=== PATIENT | female | born 2000 | race African-American/Black ===

== ENCOUNTER → 2023-10-19 14:53 | Outpatient (CLI) | payer OTHER, SELFPAY ==
[2023-10-19 15:21] LABS: Add Manual Diff / Slide Review NO; Basophils Absolute Auto 0 /uL (0-100); Basophils Percent Auto 0.4 % (0-2); Eosinophils Absolute Auto 100 /uL (0-450); Eosinophils Percent Auto 0.5 % (2-4); Hematocrit 33.3 % (36-46); Hemoglobin 11.4 g/dL (12.0-16.0); Lymphocytes Absolute Auto 1500 /uL (1100-4500); Lymphocytes Percent Auto 14.6 % (25-40); Mean Corpuscular HGB Conc 34.4 % (30-36); Mean Corpuscular Hemoglobin 30.9 PG (26-34); Mean Corpuscular Volume 89.9 fL (80-100); Monocytes Absolute Auto 500 /uL (0-900); Neutrophils Absolute Auto 8400 /uL (1500-7000); Neutrophils Percent Auto 79.5 % (50-75); Platelet Count 265 X10^3/uL (150-400); Red Cell Distribution Width 13.5 % (11.6-14.8); White Blood Cell Count 10.5 X10^3/uL (4.5-11.0)
[2023-10-19 17:37] LABS: Appearance Urine UA CLEAR; Bilirubin Urine UA NEGATIVE (NEGATIVE); Color Urine UA YELLOW; Glucose Urine UA NEGATIVE (Negative); Ketones Urine UA TRACE (NEGATIVE); Leukocyte Esterase Urine UA TRACE (NEGATIVE); Nitrite Urine UA NEGATIVE (Negative); Occult Blood Urine UA NEGATIVE (Negative); Protein Urine UA TRACE (Negative); Specific Gravity Urine UA >=1.030 (1.000-1.035)
[2023-10-19 17:39] LABS: Bacteria Urine Few (2-10); Mucus Urine 1+ (Negative); RBC Urine None Seen (0-5/HPF); Squamous Epithelial Cell Urine 5-10 /HPF (0-5/HPF); Urine Volume 10mL (spun); WBC Urine 5-10/HPF (0-5/HPF)
[2023-10-21 05:36] LABS: RPR Screen Non Reactive (Non Reactive)
[2023-10-21 08:36] LABS: Varicella IgG Antibody 415 index (Immune >165)
[2023-10-21 14:44] LABS: Hepatitis B Surface Antigen NEGATIVE s/c (NEGATIVE); Rubella Antibody IgG 7.2 IU/mL (>15)
[2023-10-21 15:01] LABS: HIV 1 & 2 Ab/Ag 4th Gen Combo NEGATIVE (NEGATIVE); Hep C Virus Ab w/Reflex Quant NEGATIVE s/c (NEGATIVE)
== END ==
PROVIDERS: Referring Provider Student in an Organized Health Care Education/Training Program; Visit Provider Student in an Organized Health Care Education/Training Program
DX: Z34.80 Encounter for supervision of other normal pregnancy, unspecified trimester (principal)
CPT/HCPCS: 80055; 81003; 81015; 86787; 86803; 86850; 86900; 86901; 87077; 87086; 87389

== ENCOUNTER 2023-10-31 15:57 | Emergency (ER) | payer OTHER, SELFPAY ==
[2023-10-31 16:20] VITALS: BP 120/64; PULSE 85; RESP 16; TEMP 37.1; O2SAT 100; BMI 26.1
[2023-10-31 18:32] VITALS: PULSE 76; RESP 16; O2SAT 100
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
[2023-10-31] MEDS: TET,DIPH,PERTUSS(ACELL),VAC/PF 0.5 ML SYRINGE IM (19:24)
[2023-10-31 19:28] VITALS: BP 112/67; PULSE 70; RESP 20; TEMP 36.9; O2SAT 100
== END 2023-10-31 19:33 | disposition home or self-care (01) ==
PROVIDERS: Emergency Provider Emergency Medicine
DX: S81.811A Laceration without foreign body, right lower leg, initial encounter (principal); W45.8XXA Other foreign body or object entering through skin, initial encounter; Z23 Encounter for immunization
CPT/HCPCS: 81003; 81025; 90471; 99283; 90715

== ENCOUNTER → 2023-11-01 07:14 | Outpatient (CLI) | payer OTHER, SELFPAY ==
--- NOTE | 2023-11-01 07:16 | DI.US.S_ITS ---
PROCEDURE: US OB >= 14 WEEKS FETUS INDICATIONS: f/u incomplete anatomy scan @[facility] OUTSIDE/PRIOR DATING DATA: Last menstrual period (LMP): 05/09/2023. LMP-based estimated date of delivery (DOMINIQUE): 02/12/2024. The calculations are made using the DOMINIQUE of 02/18/2024. TECHNIQUE: Real-time scanning was performed of the fetus, with image documentation and biometric measurements. Endovaginal scanning: Not performed COMPARISON: None. FINDINGS: General: A single living intrauterine gestation is present. Presentation: Breech. Placenta: Placental position is anterior , without previa. Amniotic fluid index: 25.9 cm, normal range is 5-24 cm. Single deepest vertical pocket is 7.9 cm. heart rate: 140 beats per minute. Maternal cervical canal: 3.1 cm long. Normal lower limit is 2.5 cm. biometrics: Biparietal diameter: 6.2 cm, 25 weeks 2 days Head circumference: 22.7 cm, 24 weeks 5 days Abdominal circumference: 19.4 cm, 24 weeks 0 days Femur length: 4.1 cm, 23 weeks 3 days Clinically estimated gestational age: 23 weeks 5 days Composite gestational age from present scan: 24 weeks 3 days Estimated weight and percentile: 645 g, 53% Anatomic survey: Face: Nose and lips, facial profile are normal. Heart: 4-chambered heart is present. The outflow tracts are not well seen secondary to positioning. IMPRESSION: 1. Single live intrauterine consistent with 24 weeks and 3 days. 2. Facial profile, nose and lips are within normal limits. Four-chamber heart is seen. The outflow tracts are not well seen secondary to positioning. 3. Elevated amniotic fluid index at 25.9 cm. Recommend short-term follow-up ultrasound. 4. Placental cord insertion was not imaged, attention on follow-up exam. We strive to produce accurate, complete, and clear reports of imaging services. To assist us in improving patient care, this report was composed using standard report templates and voice recognition software. Therefore, it may contain abnormal punctuation, insertions and/or omissions. Occasional wrong-word or sound-alike substitutions may occur. Though we review the report and make efforts to correct it, we do recommend that the report be read carefully in proper context to recognize any text inaccuracies. Dictated by: Sarkis Cantu M.D. on 11/01/2023 at 10:57 Approved by: Sarkis Cantu M.D. on 11/01/2023 at 11:02
== END ==
PROVIDERS: Referring Provider Student in an Organized Health Care Education/Training Program; Visit Provider Student in an Organized Health Care Education/Training Program
DX: Z34.82 Encounter for supervision of other normal pregnancy, second trimester (principal); Z3A.24 24 weeks gestation of pregnancy
CPT/HCPCS: 76811

== ENCOUNTER → 2023-11-16 07:47 | Outpatient (CLI) | payer OTHER, SELFPAY ==
--- NOTE | 2023-11-16 07:48 | DI.US.S_ITS ---
PROCEDURE: US OB FOLLOW UP INDICATIONS: short term followup OUTSIDE/PRIOR DATING DATA: Last menstrual period (LMP): 05/09/2023. LMP-based estimated date of delivery (DOMINIQUE): 02/12/2024. The calculations are made using the working DOMINIQUE of 02/18/2024. TECHNIQUE: Real-time scanning was performed of the fetus, with image documentation and biometric measurements. Endovaginal scanning: No COMPARISON: None. FINDINGS: General: A single living intrauterine gestation is present. Presentation: Breech. Placenta: Placental position is anterior , without previa. Amniotic fluid index: 30.3 cm, normal range is 5-24 cm. Single deepest vertical pocket is 8.7 cm. heart rate: 143 beats per minute. Maternal cervical canal: 4.3 cm long. Normal lower limit is 2.5 cm. Clinically estimated gestational age: 26 week 4 day Anatomic survey: Neuro: Ventricles are normal at less than 10 mm. Cisterna magna is normal at 3-11 mm. Cerebellum is normal in size and morphology. Nuchal skin fold: Normal at less than 6 mm between 14 and 21 weeks gestational age. Face: Nose and lips, facial profile are normal. Spine: No evidence for spina bifida. Heart: 4-chambered heart is present, with normal ventricular outflow tracts. Diaphragm: Diaphragm is intact. Stomach: Left-sided stomach is present. Kidneys: No hydronephrosis. Normal is less than 5 mm in 2nd trimester, less than 7 mm in 3rd trimester. Cord: 3 vessel cord has orthotopic insertion. Bladder: Normal in size. Extremities: All 4 extremities are visualized. IMPRESSION: Single live intrauterine consistent with a 26 week 4 day gestation. Polyhydramnios. AYESHA 30.3 Approved by: Teodoro Cruz M.D. on 11/16/2023 at 18:14
[2023-11-16 13:03] LABS: Hematocrit 31.4 % (36-46); Hemoglobin 10.8 g/dL (12.0-16.0)
[2023-11-16 13:40] LABS: GTT (PREG) 1 Hour PP 50gm Dose 116 mg/dL (76-139)
== END ==
PROVIDERS: Referring Provider Student in an Organized Health Care Education/Training Program; Visit Provider Student in an Organized Health Care Education/Training Program
DX: O40.2XX0 Polyhydramnios, second trimester, not applicable or unspecified (principal); Z3A.26 26 weeks gestation of pregnancy
CPT/HCPCS: 36415; 76816; 82950; 85014; 85018

== ENCOUNTER 2023-11-25 08:51 | Outpatient (CLI) | payer OTHER, SELFPAY ==
[2023-11-25 09:19] LABS: Appearance Urine UA CLEAR; Bilirubin Urine UA NEGATIVE (NEGATIVE); Color Urine UA YELLOW; Glucose Urine UA NEGATIVE (Negative); Ketones Urine UA NEGATIVE (NEGATIVE); Leukocyte Esterase Urine UA 1+ (NEGATIVE); Nitrite Urine UA NEGATIVE (Negative); Occult Blood Urine UA NEGATIVE (Negative); Protein Urine UA NEGATIVE (Negative)
[2023-11-25 09:26] LABS: Bacteria Urine None Seen; Culture Indicated Urine Cult Not Indicated; RBC Urine 0-1/HPF (0-5/HPF); Squamous Epithelial Cell Urine 5-10 /HPF (0-5/HPF); Urine Volume 10mL (spun); WBC Urine 1-5/HPF (0-5/HPF)
--- NOTE | 2023-11-25 10:02 | DI.US.S_ITS ---
PROCEDURE: US OB LIMITED INDICATIONS: PAIN OUTSIDE/PRIOR DATING DATA: Last menstrual period (LMP): 05/09/2023. LMP-based estimated date of delivery (DOMINIQUE): 02/12/2024. First dating scan (date and location): Not applicable. Estimated date of delivery (DOMINIQUE) from first dating scan: Not applicable. TECHNIQUE: Real-time scanning was performed of the fetus, with image documentation. COMPARISON: [facility], OB >= 14 WEEKS FETUS, 11/01/2023, 7:37. [facility], OB FOLLOW UP, 11/16/2023, 8:03. FINDINGS: A single live intrauterine gestation is present. Presentation: Vertex. Placenta: Placental position is anterior, without previa. In this patient with this given history, scrutiny is given to the placenta. No placental abnormality is seen. Amniotic fluid index: 23.3 cm, normal range is 5-24 cm. Single deepest vertical pocket is 7.4 cm. heart rate: 132 beats per minute. Maternal cervical canal: 3.2 cm long. Normal lower limit is 2.5 cm. Clinically estimated gestational age: 27 weeks 6 days IMPRESSION: No placental abnormality is seen on these images. Dictated by: Juan Motta M.D. on 11/25/2023 at 10:22 Approved by: Juan Motta M.D. on 11/25/2023 at 10:27
--- NOTE | 2023-11-25 10:41 | P.TNLD_ITS ---
Visit Information Visit Information Date of evaluation: 11/25/23 Primary OB Provider: Liz Seymour Reason for Evaluation: Yes pre-term labor and Yes rule out labor Comments/Additional reasons for admission: Patient evaluated for severe abdominal pain wrapped around to back. Pain began 24 hours ago. Constant. No leaking of fluid. Increased discharge. Good movement. 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 ) current occupational exposures/hazards: No special korey needs: No travel history: recent (domestic only) seatbelt use: always water heater temp set < 120 deg: Yes working smoke detector in home: Yes fire extinguisher in home: Yes carbon monox detector in home: Yes firearms in home: No do you feel safe at home: Yes Smoking Status: Former smoker Tobacco: How many years used: 2 second hand exposure: No alcohol intake: former (occasionally when not ) substance use type: does not use during the past year weight has: remained stable (prior ) well-balanced diet: about half the time daily servings fruits/ve-4 (~3 almost exclusively fruit) caffeine: Yes (stopped energy drinks with ) Type(s) of exercise: walking additional social history: Patient still legally to someone else but states that she has a protection order in place against him. Has already had HCPOA drawn up and names mother as her POA. Exam Narrative Exam Narrative: Speculum exam without pooling of fluids. Cervix closed. Copious yellow discharge. Objective Labs Labs: Laboratory Results - last 24 hr 11/25/23 09:00 Urine Color Yellow Urine Appearance Clear Urine pH 7.0 Ur Specific [place] 1.020 Urine Protein Negative Urine Glucose (UA) Negative Urine Ketones Negative Urine Occult Blood Negative Urine Nitrate Negative Urine Bilirubin Negative Urine Urobilinogen 1.0 Ur Leukocyte Esterase 1+ H Urine RBC 0-1/hpf Urine WBC 1-5/hpf Ur Squamous Epith Cells 5-10 /hpf H Urine Bacteria None seen Ur Culture Indicated? Cult not indicated Vol Urine Centrifuged 10ml (spun) Evaluation Evaluation Baseline heart rate: 145 Variability: Average (6-10) monitor accelerations: Present Monitor Decelerations: Absent Diagnosis, Plan/Disposition Final Diagnosis (1) Bacterial vaginosis: Status: Acute Plan/Disposition Plan: Urine negative. Ultrasound without signs of abruption. Exam consistent with BV. Prescription for metronidazole sent. FU next week in clinic. OB Disposition: home
== END 2023-11-25 10:39 | disposition home or self-care (01) ==
LOC: LABOR 09:01 → OB 11-30 12:21
PROVIDERS: Referring Provider Student in an Organized Health Care Education/Training Program; Visit Provider Student in an Organized Health Care Education/Training Program
DX: O23.592 Infection of other part of genital tract in pregnancy, second trimester (principal); Z3A.27 27 weeks gestation of pregnancy
CPT/HCPCS: 59025; 76815; 81001; 84112; 87086; 87210; G0378; G0379

== ENCOUNTER 2024-01-22 11:52 | Observation (INO) | payer OTHER, SELFPAY ==
[2024-01-22 12:29] LABS: Appearance Urine UA CLEAR; Bilirubin Urine UA NEGATIVE (NEGATIVE); Color Urine UA YELLOW; Glucose Urine UA TRACE g/dL (Negative); Ketones Urine UA NEGATIVE (NEGATIVE); Leukocyte Esterase Urine UA TRACE (NEGATIVE); Nitrite Urine UA NEGATIVE (Negative); Occult Blood Urine UA NEGATIVE (Negative); Protein Urine UA NEGATIVE (Negative); Urobilinogen Urine UA 0.2 E.U./dL (0.2)
[2024-01-22 12:38] LABS: Amorphous Sediment Urine 1+; Bacteria Urine Few (2-10); Culture Indicated Urine Specimen Cultured; RBC Urine None Seen (0-5/HPF); Squamous Epithelial Cell Urine 1-5 /HPF (0-5/HPF); Urine Volume 10mL (spun); WBC Urine 1-5/HPF (0-5/HPF)
[2024-01-22 13:08] LABS: Strep Grp B PCR POS for Grp B Strep
[2024-01-22] MEDS: LACTATED RINGERS 1,000 ML 1000 ML IV (13:20)
== END 2024-01-22 14:34 | disposition home or self-care (01) ==
PROVIDERS: Admitting Provider Student in an Organized Health Care Education/Training Program; Referring Provider Student in an Organized Health Care Education/Training Program; Visit Provider Student in an Organized Health Care Education/Training Program
DX: O60.03 Preterm labor without delivery, third trimester (principal); O40.3XX0 Polyhydramnios, third trimester, not applicable or unspecified; Z3A.35 35 weeks gestation of pregnancy
CPT/HCPCS: 59025; 59050; 81001; 87086; 87653; 96360; G0378; G0379

== ENCOUNTER → 2024-02-01 10:47 | Outpatient (CLI) | payer OTHER, SELFPAY ==
--- NOTE | 2024-02-01 10:48 | DI.US.S_ITS ---
PROCEDURE: US OB LIMITED INDICATIONS: 4 week follow up OUTSIDE/PRIOR DATING DATA: Last menstrual period (LMP): 05/09/2023. LMP-based estimated date of delivery (DOMINIQUE): 02/12/2024. First dating scan (date and location): 08/01/2023. Estimated date of delivery (DOMINIQUE) from first dating scan: 02/23/2024. The calculations are made using the working DOMINIQUE of 02/23/2024. TECHNIQUE: Real-time scanning was performed of the fetus, with image documentation and biometric measurements. Endovaginal scanning: No COMPARISON: [facility], OB LIMITED, 11/25/2023, 10:16. FINDINGS: General: A single living intrauterine gestation is present. Presentation: Vertex. Placenta: Placental position is anterior , without previa. Amniotic fluid index: 23.5 cm, normal range is 5-24 cm. Single deepest vertical pocket is 8.6 cm. heart rate: 155 beats per minute. Maternal cervical canal: Nonvisualized biometrics: Biparietal diameter: 9.0 cm, 36 week 4 day Head circumference: 32.7 cm, 37 week 1 day Abdominal circumference: 31.8 cm, 35 week 5 day Femur length: 6.5 cm, 33 week 3 day Clinically estimated gestational age: 36 week 6 day Composite gestational age from present scan: 35 week 5 day Estimated weight and percentile: 2647 g, 18 percentile Other: Not applicable. IMPRESSION: Single live intrauterine consistent with 35 week 5 day gestation by current ultrasound Normal anatomic survey Approved by: Teodoro Cruz M.D. on 02/01/2024 at 17:27
== END ==
LOC: US 10:48
PROVIDERS: Referring Provider Student in an Organized Health Care Education/Training Program; Visit Provider Student in an Organized Health Care Education/Training Program
DX: O40.3XX0 Polyhydramnios, third trimester, not applicable or unspecified (principal); Z3A.35 35 weeks gestation of pregnancy
CPT/HCPCS: 76815

== ENCOUNTER 2024-02-03 15:19 | Outpatient (CLI) | payer OTHER, SELFPAY | END 2024-02-03 16:09 | disposition home or self-care (01) | LOC: LABOR 16:19 → OB 02-07 06:26 | PROVIDERS: Referring Provider Family Medicine; Visit Provider Family Medicine | DX: O47.1 False labor at or after 37 completed weeks of gestation (principal); O26.893 Other specified pregnancy related conditions, third trimester; N89.8 Other specified noninflammatory disorders of vagina; O40.3XX0 Polyhydramnios, third trimester, not applicable or unspecified; Z3A.37 37 weeks gestation of pregnancy | CPT/HCPCS: 59025; 84112; 87210; G0378; G0379 ==

== ENCOUNTER 2024-02-10 14:43 | Outpatient (CLI) | payer OTHER, SELFPAY | END 2024-02-10 16:22 | disposition home or self-care (01) | LOC: LABOR 15:01 → OB 02-14 10:34 | PROVIDERS: Referring Provider Student in an Organized Health Care Education/Training Program; Visit Provider Student in an Organized Health Care Education/Training Program | DX: O40.3XX0 Polyhydramnios, third trimester, not applicable or unspecified (principal); O09.33 Supervision of pregnancy with insufficient antenatal care, third trimester; Z3A.38 38 weeks gestation of pregnancy | CPT/HCPCS: 59025; 84112; 87210; G0378; G0379 ==

== ENCOUNTER 2024-02-13 09:30 | Observation (INO) | payer OTHER, SELFPAY | END 2024-02-13 12:30 | disposition home or self-care (01) | LOC: LABOR 09:32 | PROVIDERS: Admitting Provider Family Medicine; Referring Provider Family Medicine; Visit Provider Family Medicine | DX: O47.1 False labor at or after 37 completed weeks of gestation (principal); O40.3XX0 Polyhydramnios, third trimester, not applicable or unspecified; O09.33 Supervision of pregnancy with insufficient antenatal care, third trimester; Z3A.38 38 weeks gestation of pregnancy | CPT/HCPCS: 59025; 59050; G0378; G0379 ==

== ENCOUNTER 2024-02-16 17:11 | Inpatient (IN) | payer OTHER, SELFPAY ==
[2024-02-16 18:11] LABS: Add Manual Diff / Slide Review NO; Basophils Absolute Auto 100 /uL (0-100); Basophils Percent Auto 1.1 % (0-2); Eosinophils Absolute Auto 0 /uL (0-450); Eosinophils Percent Auto 0.2 % (2-4); Hemoglobin 11.4 g/dL (12.0-16.0); Lymphocytes Absolute Auto 1500 /uL (1100-4500); Lymphocytes Percent Auto 14.6 % (25-40); Mean Corpuscular HGB Conc 33.6 % (30-36); Mean Corpuscular Hemoglobin 29.7 PG (26-34); Mean Corpuscular Volume 88.5 fL (80-100); Monocytes Absolute Auto 800 /uL (0-900); Monocytes Percent Auto 7.4 % (3-14); Neutrophils Absolute Auto 8100 /uL (1500-7000); Neutrophils Percent Auto 76.7 % (50-75); Platelet Count 268 X10^3/uL (150-400); Red Blood Cell Count 3.84 X10^6/uL (4.0-5.2); Red Cell Distribution Width 13.8 % (11.6-14.8); White Blood Cell Count 10.6 X10^3/uL (4.5-11.0)
[2024-02-16 18:31] VITALS: BP 118/73
[2024-02-16] MEDS: miSOPROStoL 25 MCG TABLET VAG (18:50)
--- NOTE | 2024-02-16 20:30 | P.HPOB_ITS ---
OB HPI Date/Time Date of admission: 02/16/24 History of Present Condition Chief complaint: INDUCTION DOMINIQUE Calculator 2 Estimated Delivery Date Method Current Current Estimate 02/23/24 Manual 39w 0d Reportedly based on 1st US per [facility] provider notes Other Estimates 02/10/24 LMP (Uncertain) 40w 6d : 2 Para: 0 Narrative: 23 yo at 39w0d here for elective induction. complicated by polyhydramnios and GBS bacteriuria. Patient saw MFM. They did not find indication for polyhydramnios, no GDM. Recommended q4w US. Most recent January 31 with fluid at 24.5, EFW 18th percentile. Patient with ongoing irregular contraction for past few weeks. Good movement. No LOF. care: good care Dating criteria OB: based on 1st trimester US only Ultrasounds: normal 1st trimester US and abnormal US findings Abnormal ultrasound findings: polyhydramnios Obstetrical complications: none Medical complications OB: none Indications Indication for induction OB: other (polyhydramnios) Preadmission Labs Last OB Lab Results: 2 Blood Type O Positive 02/16/24 17:55 Antibody Screen Negative 02/16/24 17:55 Hct 34.0 % (36-46) L 02/16/24 17:55 Hgb 11.4 g/dL (12.0-16.0) L 02/16/24 17:55 Hep Bs Antigen Negative s/c (NEGATIVE) 10/19/23 15:03 Hepatitis C Antibody Negative s/c (NEGATIVE) 10/19/23 15:03 Rubella Antibody 7.2 IU/mL (>15) L 10/19/23 15:03 VZV IgG Antibody 415 index (Immune >165) 10/19/23 15:03 Glucose 1 Hr 50 gm 116 mg/dL (76-139) 11/16/23 12:41 Group B Strep (PCR) Pos for grp b strep H 01/22/24 12:10 Glucose Tolerance Testin hr Prior (ies) Past Pregnancies Del. Date GA/Weeks Labor Lgth Wt Sex Route Outcome Anesthesia Place Delv Breastfeed Preg Comp Name 11/17/22 13 spontaneous Delivery Date: 11/17/22 Last Updated by: Fior Liz RN drinking and smoking, didn't know she was until she miscarried. Passed spontaneously, no complications Evaluation Evaluation Baseline heart rate: 145 Variability: Average (6-10) monitor accelerations: Present Monitor Decelerations: Absent Contraction Frequency (minutes): 5 Category of Tracing: Reactive Status: Category l Dilation (cm): 1.5 Effacement (%): 30 Dilation: 1-2 cm Effacement: 0-30% station: -3 Position of cervix: posterior Consistency: medium Sandoval score: 2 PFSH Medical History Healthy adult Surgical History [place] teeth extracted Social History marital status: unmarried,living together number of children: 0 household members: significant other lives independently: Yes caregiver/support person: No housing: [facility] ([facility] education level: high school 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, 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 ) current occupational exposures/hazards: No special korey needs: No travel history: recent (domestic only) seatbelt use: always water heater temp set < 120 deg: Yes working smoke detector in home: Yes fire extinguisher in home: Yes carbon monox detector in home: Yes firearms in home: No do you feel safe at home: Yes Smoking Status: Former smoker Tobacco: How many years used: 2 second hand exposure: No alcohol intake: former (occasionally when not ) substance use type: does not use during the past year weight has: remained stable (prior ) well-balanced diet: about half the time daily servings fruits/ve-4 (~3 almost exclusively fruit) caffeine: Yes (stopped energy drinks with ) Type(s) of exercise: walking additional social history: Patient still legally to someone else but states that she has a protection order in place against him. Has already had HCPOA drawn up and names mother as her POA. Meds Home Medications and Allergies Home Medications Medication Instructions Recorded Confirmed Type [id number] 400 mcg-om3 35 mg-dha 25 1 tab PO 1XD 10/18/23 02/16/24 History mg-epa 5 mg-fish oil chewable tablet 139-iron 33 mg-folic ac 1 pkg PO DAILY #60 ea 11/16/23 02/16/24 Rx 800 mcg tablet and dha 350 mg capsule (Brainstron ) metronidazole 500 mg tablet 500 mg PO TID #21 tabs 11/25/23 02/16/24 Rx fluconazole 150 mg tablet 150 mg PO Q3D 2 doses #2 tabs 02/10/24 02/16/24 Rx Allergies Allergy/AdvReac Type Severity Reaction Status Date / Time No Known Drug Allergies Allergy Verified 02/16/24 17:39 Objective Labs 02/16/24 17:55 Labs: Laboratory Results - last 24 hr 02/16/24 17:55 WBC 10.6 RBC 3.84 L Hgb 11.4 L Hct 34.0 L MCV 88.5 MCH 29.7 MCHC 33.6 RDW 13.8 Plt Count 268 Neut % (Auto) 76.7 H Lymph % (Auto) 14.6 L Kimble % (Auto) 7.4 Eos % (Auto) 0.2 L Baso % (Auto) 1.1 Neut # (Auto) 8100 H Lymph # (Auto) 1500 Kimble # (Auto) 800 Eos # (Auto) 0 Baso # (Auto) 100 Blood Type O Positive Antibody Screen Negative Assessment and Plan Assessment and Plan Assessment and Plan narrative: 23 yo at 39w0d based on 1st tri US here for IOL. complicated by polyhydramnios and GBS bacteriuria. SVE 1.5/thick/high. -vaginal misoprostal 25 mcg q4hrs -continuous monitoring -GBS pos, no allergies to antibiotics - start routine antibiotics when more active -anticipate vaginal delivery Time-Based Coding :: 30 min spent with patient and on the chart (including review of chart, obtaining history, exam, reviewing outside data, placing orders, documenting exam and treatment plan, and counseling patient) on 02/15.
[2024-02-17] MEDS: fentaNYL 100 MCG/2 ML INJ 50 MCG IV ×3 (00:54→12:26)
[2024-02-17] MEDS: miSOPROStoL 25 MCG TABLET VAG (07:35)
--- NOTE | 2024-02-17 07:43 | P.PNOB_ITS ---
Date/Time Date Patient Seen: 02/17/24 Time Patient Seen: 07:30 Pain Control Pain control: tolerating well Comments: fentanyl overnight Pelvic Exam Dilation (cm): 2 Effacement (%): 40 station: -3 Amniotic membrane status: Intact Contractions Monitor mode: External Contraction frequency (min): 5 Contraction pattern: Regular Contraction intensity: Moderate Status status: Category l Heart Rate Baseline: 120 Monitor Accelerations: Present Monitor Decelerations: Absent Monitor Variability: Moderate Assessment and Plan Assessment: induction ongoing Plan: continuous present management Comments: Patient received one dose of vag miso 25 mcg and reported contraction pain 7- 8/10 overnight. No cervical change this AM. Will redose vaginal misoprostol 25 mcg and then move to pitocin.
--- NOTE | 2024-02-17 13:23 | PM.OBPNLAB ---
Date/Time Date Patient Seen: 02/17/24 Time Patient Seen: 12:00 Pain Control Comments: fentanyl x 2 Pelvic Exam Dilation (cm): 2 Effacement (%): 40 station: -3 Amniotic membrane status: Intact Contractions Monitor mode: External Contraction frequency (min): 5 Contraction pattern: Regular Contraction intensity: Moderate Status status: Category l Heart Rate Baseline: 145 Monitor Accelerations: Present Monitor Decelerations: Absent Monitor Variability: Moderate Assessment and Plan Assessment: induction ongoing Plan: begin patient augmentation Comments: 23 yo at 39w0d IOL. complicated by polyhydramnios. SVE unchanged. -jarvis placed at this time -start pitocin
[2024-02-17] MEDS: LACTATED RINGERS 1,000 ML 100 ML IV ×2 (14:04→14:58)
[2024-02-17] MEDS: OXYTOCIN PREMIX 30 UNIT/500 ML PLAST..BAG IV (14:33)
--- NOTE | 2024-02-17 14:36 | PM.AN.REGBLK ---
Regional Block Pre-procedure Procedure: Continuous Lumbar Epidural for L&D Attending OB provider: Liz Seymour PMH/ROS narrative: , IOL. ROS/PMH negative PSH/Anesthesia history narrative: lumbar puncture for increased ICP a couple years ago. Patient related the increase to stress. Resolved, no sequelae. Exam narrative: Mall II, good dentition ASA Class: II Labs: Hct 34.0 % (36-46) L 02/16/24 17:55 Plt Count 268 X10^3/uL (150-400) 02/16/24 17:55 Medications: Current Medications Generic Name Dose Route Start Last Admin Trade Name Freq PRN Reason Stop Dose Admin Carboprost Tromethamine 250 mcg 02/16/24 17:19 Carboprost 250 Mcg/Ml Ampul IM Q90M PRN Bleeding Fentanyl 50 mcg 02/16/24 17:19 02/17/24 12:26 Fentanyl 100 Mcg/2 Ml Inj IV 50 mcg Q1H PRN Administration Pain, Moderate (4-6) Oxytocin/Lactated Ringer's 30 unit in 500 mls @ 200 mls/hr 02/16/24 17:19 Oxytocin Premix IV CONT PRN Bleeding Protocol Tranexamic Acid 1,000 mg/ 100 mls @ 600 mls/hr 02/16/24 17:19 Sodium Chloride IV NOW PRN Bleeding Oxytocin/Lactated Ringer's 30 unit in 500 mls @ 2 mls/hr 02/17/24 13:45 02/17/24 14:33 Oxytocin Premix IV 2 milliunit/min TITRATE NATALYA 2 mls/hr Administration Protocol 2 MILLIUNIT/MIN Lidocaine HCl 20 ml 02/16/24 17:19 Lidocaine 1% 20 Ml INJ INTRA-OP PRN Post Delivery Methylergonovine Maleate 0.2 mg 02/16/24 17:19 Methylergonovine 0.2 Mg/Ml Vial IM NOW PRN Bleeding Methylergonovine Maleate 0.2 mg 02/16/24 17:19 Methylergonovine 0.2 Mg Tablet PO Q6HR PRN Heavy Bleeding Mineral Oil 30 ml 02/16/24 17:19 Mineral Oil 30 Ml Udc TOP PRN PRN Version Misoprostol 400 mcg 02/16/24 17:19 Misoprostol 200 Mcg Tablet SL NOW PRN Bleeding Misoprostol 25 mcg 02/16/24 17:19 02/17/24 07:35 Misoprostol 25 Mcg Tablet VAG 25 mcg Q4H PRN Administration cervical ripening Misoprostol 800 mcg 02/16/24 17:19 Misoprostol [address] NOW PRN Bleeding Naloxone HCl 0.2 mg 02/16/24 17:19 Naloxone 0.4 Mg/Ml Vial IV Q2MIN PRN Opiate Reversal Ondansetron HCl 4 mg 02/16/24 17:19 Ondansetron 4 Mg/2 Ml Inj IV Q4HR PRN Nausea And Vomiting Oxytocin 10 unit 02/16/24 17:19 Oxytocin 10 Unit/Ml Vial IM NOW PRN Bleeding Allergies: Allergies Allergy/AdvReac Type Severity Reaction Status Date / Time No Known Drug Allergies Allergy Verified 02/16/24 17:39 Procedure Insertion date: 02/17/24 Insertion time: 14:10 Prep/Local: 1% lidocaine (chlorhex skin prep) Interspace: L4-5 Patient position: sitting Needle: 17 gauge Tuohy Loss of resistance with: saline ROGERS at (cm): 6 Catheter placed at SKIN (cm): 13 Catheter in SPACE (cm): 7 Sensory level: T10 Insertion: No CSF, No Blood, No Paresthesia with insertion, No Paresthesia with injection and No Test dose reaction Initial Medications TEST DOSE time: 14:20 BOLUS DOSE time: 14:28 BOLUS DOSE (mL): 5 BOLUS DOSE med: other (pump solution) Infusion Initial rate (mL/hr): 12 Post-procedure Anesthesia date START: 02/17/24 Anesthesia time START: 14:10 Anesthesia date END: 02/17/24 Anesthesia time END: 21:59 Post-procedure Anesthesia Assessment: Yes CV function: HR/BP stable, Yes Resp function: RR/sat/airway adequate, Yes Post-op hydration adequate, Yes Pain control adequate, Yes Nausea & vomiting absent, Yes Temperature > 36 C, Yes Mental status appropriate and Yes Anesthesia complications
[2024-02-17] MEDS: AMPICILLIN 2,000 MG in SODIUM CHLORIDE 0.9% 100 ML 200 MG IV (18:17)
--- NOTE | 2024-02-17 20:52 | PM.OBPNLAB ---
Pain Control Pain control: epidural Pelvic Exam Dilation (cm): 6 Effacement (%): 100 station: 0 Amniotic membrane status: Ruptured Contractions Monitor mode: External Contraction frequency (min): 3 Contraction pattern: Regular Contraction intensity: Moderate Status status: Category l Heart Rate Baseline: 145 Monitor Accelerations: Present Monitor Decelerations: Absent Monitor Variability: Moderate Assessment and Plan Assessment: induction ongoing Plan: continuous present management Comments: 23 yo at 39w0d IOL. complicated by polyhydramnios. GBS positive. SVE 6/100/0. -SROM at 1700, GBS prophylaxis started after -continue pitocin -anticipate vaginal delivery
[2024-02-17] MEDS: FENT 2MCG/ML BUPIV 0.125% EPI 200 MCG/100 ML PLAST..BAG 12 MCG EPIDURAL (21:17)
[2024-02-17] MEDS: TRANEXAMIC ACID 1,000 MG in SODIUM CHLORIDE 0.9% 100 ML 600 MG IV (22:13)
[2024-02-17] MEDS: miSOPROStoL 200 MCG TABLET 800 MCG PR (22:14)
--- NOTE | 2024-02-17 22:21 | PM.OBPRVD ---
Events: Polyhydramnios Labor & Delivery Delivery date: 02/17/24 Intrapartal Events: None Cervical ripening method: per Jackson bulb protocol (after 3 doses misoprostal) Induction method: per pitocin protocol Delivery monitor: external FHT Route of delivery: L&D Laceration Description: None Estimated blood loss (mL): 450 Anesthesia Type: Epidural Complications: uterine atony following delivery of placenta Narrative: 23 yo at 39w0d. IOL for polyhydramnios. Patient was found to be complete. Patient effectively pushed over 30 minutes. Viable male born in the OA position. Cord clamping for 5 minutes. Placenta delivered with manual traction. Following delivery of placenta there was rapid vaginal bleeding. Pitocin bolus was started. Rectal cytotec 1000 mcg given. TXA 1gm ordered and given. Cervix without any large bleeding lacerations. Bleeding slowed to trickle. Fundus firm with external massage. No vaginal lacerations. Plan for aftercare: Routine care
--- NOTE | 2024-02-18 07:46 | P.PNOB_ITS ---
Subjective - OB Subjective Patient comments: no complaints, pain well controlled and tolerating diet baby status: doing well and nursing well [employer] feeding status: exclusively breast feeding Narrative: Patient is doing well following last evening. Bleeding well controlled. Pain minimal. Baby latching well. Date Patient Seen: 02/18/24 Time Patient Seen: 07:30 Exam Narrative Exam Narrative: NAD, breathing easily. Objective Labs 02/16/24 17:55 Assessment & Plan Plan day: 1 plan OB: routine care Time-Based Coding :: 30 minutes spent with patient and on the chart (including review of chart, obtaining history, exam, reviewing outside data, placing orders, documenting exam and treatment plan, and counseling patient) on 02/18/2024.
[2024-02-18] MEDS: PRENATAL VIT,CALC/IRON/FOLIC 1 TABLET 1 TAB PO (07:51)
[2024-02-18] MEDS: ACETAMINOPHEN 325 MG TABLET 650 MG PO (07:51)
[2024-02-18] MEDS: IBUPROFEN 600 MG TABLET PO (07:51)
[2024-02-18] MEDS: LANOLIN OINT 7 GM 1 APPLIC TOP (07:52)
[2024-02-18] MEDS: DOCUSATE 100 MG CAPSULE PO (09:22)
--- NOTE | 2024-02-18 12:08 | PM.OBDS.1 ---
Discharge Providers Provider Date of admission: 02/16/24 17:11 Discharge Date: 02/18/24 Primary care physician: Irlanda MOSS Provider Consults: 02/16/24 17:19 Consult to Anesthesiology Urgent Comment: Consulting Provider: Anesthesiologist Reason for consultation: Epidural 02/18/24 22:19 Consult to Electronics Utility Worker Routine Comment: Discharge provider: Liz Seymour MD Summary Hospital Course Date Patient Seen: 02/18/24 Time Patient Seen: 12:00 Diagnoses: Term ; polyhydramnios Hospital Course: This is a 23 yo G2 now P1. She was induced for polyhydramnios at 39w0d and delivered at 39w1d. She was GBS positive. She did not receive adequate GBS prophylaxis 2/2 to rapid progression. She did receive 3.5 hrs of antibiotics. Delivery was complicated by bleeding that was controlled with pitocin, cytotec, and TXA (EBL = 450). she recovered well. Baby was with good latch. Peripartum Data Delivery Method: Natural Vaginal Laceration Description: None complications: none Status at Discharge Cognitive/behavioral status at discharge: oriented Functional status at discharge: independent ambulation Overall status at discharge: patient is back to baseline Time Spent with Patient Time attestation: Total time spent providing and/or coordinating discharge services: Time spent: Greater than 30 minutes Objective Labs 02/16/24 17:55 Discharge Plan Discharge Plan Patient Disposition: Home Discharge orders & Medications Prescriptions: New acetaminophen 325 mg Tablet 650 mg PO Q6HR PRN (Reason: Pain, Mild (1-3)) Qty: 30 0RF docusate sodium 100 mg Capsule 100 mg PO DAILY Qty: 30 0RF ibuprofen 600 mg Tablet 600 mg PO Q6HR PRN (Reason: Pain, Mild (1-3)) Qty: 30 0RF Continued Brainstrong 33 mg iron- 800 mcg-350 mg combo pack 1 pkg PO DAILY Qty: 60 6RF [id number] oil 400 mcg-35 mg -25 mg-5 mg tablet,chewable 1 tab PO 1XD Discontinued fluconazole 150 mg tablet 150 mg PO Q3D Qty: 2 0RF metronidazole 500 mg tablet 500 mg PO TID Qty: 21 0RF Follow up/Referrals: Provider,Irlanda MOSS [Primary Care Provider] - Liz Seymour MD [Physician] - 03/31/24 10:30 am (Please follow up for your 6 week appointment on March 31 at 10:30 am. Please arrive at 10:15 am. ) Visit Report/Discharge Packet Instructions: DI for Hemorrhage, DI for Depression Stand Alone Forms: Discharge: Care, Patient Portal/API, Stroke Signs & Symptoms Discharge Data Primary Care Provider: Irlanda Rivera
== END 2024-02-18 13:18 | disposition home or self-care (01) | DRG 806 ==
PROVIDERS: Admitting Provider Student in an Organized Health Care Education/Training Program; Referring Provider Student in an Organized Health Care Education/Training Program; Visit Provider Student in an Organized Health Care Education/Training Program
DX: O40.3XX0 Polyhydramnios, third trimester, not applicable or unspecified (principal); O72.1 Other immediate postpartum hemorrhage; Z37.0 Single live birth; O99.824 Streptococcus B carrier state complicating childbirth; Z3A.39 39 weeks gestation of pregnancy
CPT/HCPCS: 36415; 59050; 59200; 59410; 85025; 86850; 86900; 86901; G0379; J0290; J2590; J3010; S0191

== ENCOUNTER → 2024-03-31 11:00 | Outpatient (CLI) | payer OTHER, SELFPAY | PROVIDERS: Visit Provider Student in an Organized Health Care Education/Training Program | DX: R31.9 Hematuria, unspecified (principal) | CPT/HCPCS: 87086 ==

== ENCOUNTER 2024-06-29 21:20 | Emergency (ER) | payer OTHER, SELFPAY ==
[2024-06-29 21:27] VITALS: BP 138/91; PULSE 77; RESP 16; TEMP 36.9; O2SAT 97; BMI 23.5
[2024-06-29 21:51] LABS: Add Manual Diff / Slide Review NO; Basophils Absolute Auto 100 /uL (0-100); Eosinophils Absolute Auto 100 /uL (0-450); Eosinophils Percent Auto 1.5 % (2-4); Hematocrit 39.7 % (36-46); Hemoglobin 13.2 g/dL (12.0-16.0); Lymphocytes Absolute Auto 2300 /uL (1100-4500); Lymphocytes Percent Auto 37.5 % (25-40); Mean Corpuscular HGB Conc 33.3 % (30-36); Mean Corpuscular Hemoglobin 28.9 PG (26-34); Mean Corpuscular Volume 86.8 fL (80-100); Monocytes Absolute Auto 500 /uL (0-900); Monocytes Percent Auto 7.7 % (3-14); Neutrophils Absolute Auto 3300 /uL (1500-7000); Neutrophils Percent Auto 52.3 % (50-75); Platelet Count 250 X10^3/uL (150-400); Red Blood Cell Count 4.58 X10^6/uL (4.0-5.2); Red Cell Distribution Width 14.4 % (11.6-14.8); White Blood Cell Count 6.2 X10^3/uL (4.5-11.0)
[2024-06-29] MEDS: KETOROLAC 30 MG/ML VIAL 15 MG IV (21:53)
[2024-06-29] MEDS: ONDANSETRON 4 MG/2 ML INJ IV (21:53)
[2024-06-29 22:01] LABS: Alanine Aminotransferase 68 IU/L (<35); Albumin 4.4 g/dL (3.5-5.0); Albumin Globulin Ratio 1.6 (1.0-2.8); Alkaline Phosphatase 96 U/L (38-126); Aspartate Aminotransferase 61 IU/L (14-36); BUN Creatinine Ratio 17.6 (6-22); Bilirubin Total 0.2 mg/dL (0.2-1.3); Blood Urea Nitrogen 16 mg/dL (7-17); Calcium 9.5 mg/dL (8.4-10.2); Carbon Dioxide 24 mmol/L (22-32); Chloride 108 mmol/L (98-107); Estimated Glomerular Filt Rate > 60 mL/min (>60); Globulin 2.7 g/dL (1.7-4.1); Glucose 109 mg/dL (70-100); HEMOLYSIS < 15 (0-50); Lipase 92 U/L (23-300); Potassium 4.3 mmol/L (3.4-5.1); Sodium 140 mmol/L (137-145); Total Protein 7.1 g/dL (6.3-8.2)
[2024-06-29 23:35] VITALS: PULSE 68; O2SAT 97
[2024-06-29 23:36] VITALS: BP 130/83; PULSE 65; RESP 18; O2SAT 97
--- NOTE | 2024-06-29 23:55 | ED.ABDPAIN ---
HPI - Abdominal Pain General Chief Complaint: Abdominal Pain Stated Complaint: severe abd pain Time Seen by Provider: 06/29/24 23:54 Source: patient Mode of arrival: Ambulatory History of Present Illness HPI narrative: Patient is a 24-year-old female who is 4 months comes into the ED from home for evaluation of lower abdominal pain states it radiates to her back. She states that the symptoms have been ongoing persistent for the past 3 weeks. She states that initially she thought she was starting her period but she has only been spotting and given persistent symptoms decided come into the ED for further evaluation treatment. States that her was vaginal, no history of abdominal surgery. She states that the pain is waxing and waning nothing making it better or worse described as a pressure. She does endorse some nausea but no vomiting. She denies any recent trauma not on any blood thinners denies any other symptoms such as headache visual disturbances chest pain fever chills or any other GI/ symptoms at this time. Related Data Previous Rx's Medication Instructions Recorded 139-iron 33 mg-folic ac 1 pkg PO DAILY #60 ea 11/16/23 800 mcg tablet and dha 350 mg capsule (Brainstrong ) polyethylene glycol 3350 17 17 g PO DAILY 2 weeks #238 grams 06/30/24 gram/dose oral powder (Miralax) Allergies Allergy/AdvReac Type Severity Reaction Status Date / Time No Known Drug Allergies Allergy Verified 03/31/24 10:43 Review of Systems Review of Systems Narrative: General: Denies fever, chills, weight loss HEENT: Denies headache, eye drainage, eye irritation, head trauma, sore throat, voice change Cardiovascular: Denies any chest pain, palpitations, tachycardia Respiratory: Denies any shortness of breath, cough, wheeze, stridor GI/: Positive abdominal pain, nausea, denies vomiting, diarrhea, bright red blood per rectum, melanotic stools, urinary frequency, urinary retention, dysuria, hematuria MSK: Denies any joint pain, muscle pains, swelling Skin: Denies any rashes, lesions, discoloration Neuro: Denies any headache, lightheadedness, dizziness, fainting, weakness Psych: Denies SI/HI Patient History Medical History Healthy adult Surgical History [place] teeth extracted Social History marital status: unmarried,living together number of children: 0 household members: significant other lives independently: Yes caregiver/support person: No housing: [facility] education level: high school 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, 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 ) current occupational exposures/hazards: No special korey needs: No travel history: recent (domestic only) seatbelt use: always water heater temp set < 120 deg: Yes working smoke detector in home: Yes fire extinguisher in home: Yes carbon monox detector in home: Yes firearms in home: No do you feel safe at home: Yes Smoking Status: Former smoker Tobacco: How many years used: 2 second hand exposure: No alcohol intake: former (occasionally when not ) substance use type: does not use during the past year weight has: remained stable (prior ) well-balanced diet: about half the time daily servings fruits/ve-4 (~3 almost exclusively fruit) caffeine: Yes (stopped energy drinks with ) Type(s) of exercise: walking additional social history: Patient still legally to someone else but states that she has a protection order in place against him. Has already had HCPOA drawn up and names mother as her POA. Smoking Status: Former smoker Exam Narrative Exam Narrative: General: Cooperative, comfortable, well-developed, not in acute distress HEENT: Normocephalic, atraumatic, PERRLA, normal sclera, eyelids normal, Neck: Active full range of motion, atraumatic Chest: Normal to inspection, negative crepitus, no overlying erythema ecchymosis Respiratory: Normal respiratory effort, not in acute respiratory distress, clear to auscultation bilaterally negative cough, wheeze, tachypnea, rhonchi, rales Cardiology: Regular rate rhythm negative gallop, murmur, rubs GI/: Normal to inspection, soft, nonrigid, no tenderness to palpation, exam deferred MSK: Full range of active range of motion of all 4 extremities, atraumatic Skin: No rashes lesions noted Neuro: Alert awake oriented x3, moves all 4 extremities spontaneously, cranial nerves intact, able to answer all questions appropriately follows commands appropriately Psych: Cooperative, negative suicidal or homicidal ideations Initial Vital Signs Initial Vital Signs: Vital Signs Temperature 98.5 F 06/29/24 21:27 Pulse Rate 77 06/29/24 21:27 Respiratory Rate 16 06/29/24 21:27 Blood Pressure 138/91 H 06/29/24 21:27 Pulse Oximetry 97 06/29/24 21:27 Oxygen Delivery Method Room Air 06/29/24 21:27 Course Orders Ordered: ED Orders 06/29/24 21:40 Complete Blood Count AUTO DIFF Stat Comprehensive Metabolic Panel Stat Lipase Stat 06/30/24 00:08 CT abdomen pelvis w con Stat Ondansetron HCl (Ondansetron 4 Mg/2 Ml Inj) 4 mg IV NOW PRN PRN Reason: Nausea And Vomiting Last Admin: 06/29/24 21:53 Dose: 4 mg Documented By: Ondansetron HCl (Ondansetron 4 Mg Odt) 4 mg PO NOW PRN PRN Reason: Nausea And Vomiting Discontinued Medications Sodium Chloride (Normal Saline 0.9%) 1,000 mls @ 1,000 mls/hr IV BOLUS ONE Stop: 06/30/24 01:06 Last Infusion: 06/30/24 01:38 Dose: Infused Documented By: Admin: 06/30/24 00:28 Dose: 1,000 mls/hr Documented By: LALO Ketorolac Tromethamine (Ketorolac 30 Mg/Ml Vial) 15 mg IV NOW ONE Stop: 06/29/24 21:51 Last Admin: 06/29/24 21:53 Dose: 15 mg Documented By: Morphine Sulfate (Morphine 4 Mg/Ml Inj) 4 mg IV NOW ONE Stop: 06/30/24 00:24 Last Admin: 06/30/24 00:28 Dose: 4 mg Documented By: LALO Ondansetron HCl (Ondansetron 4 Mg/2 Ml Inj) 4 mg IV NOW ONE Stop: 06/30/24 00:12 Last Admin: 06/30/24 00:28 Dose: 4 mg Documented By: LALO Vital Signs Vital signs: Vital Signs - 8 hr 06/29/24 21:27 06/29/24 23:35 06/29/24 23:36 Temperature 98.5 F Pulse Rate 77 68 65 Respiratory Rate 16 18 Blood Pressure 138/91 H Pulse Oximetry 97 97 97 Oxygen Delivery Method Room Air Room Air 06/29/24 23:36 06/30/24 00:00 06/30/24 00:00 Temperature Pulse Rate 58 L Respiratory Rate 16 Blood Pressure 130/83 123/77 Pulse Oximetry 98 Oxygen Delivery Method Room Air 06/30/24 00:30 06/30/24 00:30 Temperature Pulse Rate 62 Respiratory Rate 14 Blood Pressure 119/77 Pulse Oximetry 97 Oxygen Delivery Method Room Air MDM - Abdominal Pain Differential Diagnosis Differential diagnosis: Likely abdominal pain, acute appendicitis, constipation, diverticulitis, small bowel obstruction and other (Electrolyte abnormality, urinary tract infection) Lab Data 06/29/24 21:40 06/29/24 21:40 Labs: Lab Results 06/29/24 Range/Units 21:40 WBC 6.2 (4.5-11.0) X10^3/uL RBC 4.58 (4.0-5.2) X10^6/uL Hgb 13.2 (12.0-16.0) g/dL Hct 39.7 (36-46) % MCV 86.8 (80-100) fL MCH 28.9 (26-34) PG MCHC 33.3 (30-36) % RDW 14.4 (11.6-14.8) % Plt Count 250 (150-400) X10^3/uL Neut % (Auto) 52.3 (50-75) % Lymph % (Auto) 37.5 (25-40) % [place] % (Auto) 7.7 (3-14) % Eos % (Auto) 1.5 L (2-4) % Baso % (Auto) 1.0 (0-2) % Neut # (Auto) 3300 (1494-7520) /uL Lymph # (Auto) 2300 (1392-3248) /uL [place] # (Auto) 500 (0-900) /uL Eos # (Auto) 100 (0-450) /uL Baso # (Auto) 100 (0-100) /uL Sodium 140 (137-145) mmol/L Potassium 4.3 (3.4-5.1) mmol/L Chloride 108 H (98-107) mmol/L Carbon Dioxide 24 (22-32) mmol/L BUN 16 (7-17) mg/dL Creatinine 0.91 (0.52-1.04) mg/dL Estimated GFR > 60 (>60) mL/min BUN/Creatinine Ratio 17.6 (6-22) Glucose 109 H (70-100) mg/dL Calcium 9.5 (8.4-10.2) mg/dL Total Bilirubin 0.2 (0.2-1.3) mg/dL AST 61 H (14-36) IU/L ALT 68 H (<35) IU/L Alkaline Phosphatase 96 (38-126) U/L Total Protein 7.1 (6.3-8.2) g/dL Albumin 4.4 (3.5-5.0) g/dL Globulin 2.7 (1.7-4.1) g/dL Albumin/Globulin Ratio 1.6 (1.0-2.8) Lipase 92 (23-300) U/L Point of care testing: Point of Care Testing Test Results Negative Urine Dip Bedside Urine Glucose Negative Bedside Urine Bilirubin - Negative Bedside Urine Ketone - Negative Urine Specific [place] 1.020 Bedside Urine Occult Blood - Negative Bedside Urine pH 6.0 Bedside Urine Protein - Negative Bedside Urine Urobilinogen - Negative Bedside Urine Nitrite - Negative Bedside Urine Leukocytes - Negative Esterase Imaging Data CT scan - abdomen/pelvis: Radiologist's Impression: [place] [address] CT Scan Report Signed Patient: Tabatha Dai MR#: [id number] : 2000 Acct:[id number] Age/Sex: 24 / F Date of Service: 06/30/24 Loc: ED Accession Number: [id number] Procedure: CT abdomen pelvis w con Ordering Provider: Narinder Torres D.O. PROCEDURE: CT ABDOMEN PELVIS W CON INDICATIONS: lower abd pain TECHNIQUE: After the administration of intravenous contrast, axial sections acquired from the lung bases to the pubic symphysis. Coronal and sagittal reformats were performed. For radiation dose reduction, the following was used: automated exposure control, adjustment of mA and/or kV according to patient size. COMPARISON: None. FINDINGS: Image quality: Diagnostic Lower chest: Lower lungs are unremarkable. Normal heart size. Liver: Unremarkable Gallbladder and biliary system: Unremarkable, nondilated Pancreas: No ductal dilation Spleen: Nonenlarged Adrenals: No discrete nodules Kidneys: No solid mass. No hydronephrosis. Vessels and lymph nodes: The main portal vein is patent. No abdominal aortic aneurysm. No pathologic lymph nodes identified by size criteria. Bowel and peritoneum: No small bowel obstruction. No drainable ascites. Increased fecal loading. Nondilated appendix. There are mildly distended loops of distal small bowel, including at the terminal ileum. Prominent fluid-filled loops of mid ileum also seen. Body wall: Unremarkable Pelvis: Bladder and reproductive organs are unremarkable on limited CT evaluation. Bones: No acute or suspicious osseous finding. IMPRESSION: Increased fecal loading. Nondilated appendix. No evidence of active colitis. Prominent fluid-filled loops of distal ileum and mid ileum, with more focal dilation at the terminal ileum. Findings favored represent enteritis and slow transit/ileus. A partial obstruction is considered less likely. Other findings above. MDM Narrative Medical decision making narrative: 24-year-old female who is 4 months presenting for lower abdominal pain described as pressure/cramping waxing waning in nature for the past 3 weeks. Patient had lab work urinalysis and imaging performed here in the emergency department. Urinalysis not consistent with acute urinary tract infection, lab work unremarkable no leukocytosis Chem panel unremarkable. Patient had CT scan of the abdomen showing increased fecal load with normal appendix no colitis did mention fluid-filled loops of the distal ileum and mild ileum with slow transit. Patient with improved symptoms after administration of medication here. Patient symptoms more likely secondary to constipation, she will be sent home with symptomatic relief of MiraLax, instructed follow up with primary care in outpatient setting she was given strict return precautions she verbalized understanding of this and agrees to being discharged home with outpatient follow up Discharge Plan Departure Patient Disposition: Home Clinical Impression: Abdominal pain, Constipation Instructions: DI for Constipation Activity Restrictions/Additional Instructions: Please follow up with your primary care doctor Please read the discharge instructions sheet carefully and bring all papers to all doctor follow-up visits, as it may contain information that your doctor may want to see. Disease processes change and evolve, if your symptoms worsen or if you develop any new symptoms that are concerning to you please return for evaluation. Your evaluation today does not show any evidence of any life-threatening/serious illnesses requiring admission to the hospital or surgery. Please follow-up with your doctor for re-evaluation in approximately 1 day. Seek immediate medical attention for any worrisome symptoms. *If you do not have a primary care provider please contact the [facility] Resource line at [phone]. They will ask some questions about your medical history and help get you set up with a doctor in the community. Prescriptions: New polyethylene glycol 3350 [Miralax] 17 gram/dose powder 17 g PO DAILY 14 Days Qty: 238 0RF No Action Brainstrong 33 mg iron- 800 mcg-350 mg combo pack 1 pkg PO DAILY Qty: 60 6RF Referrals: ProviderIrlanda [Primary Care Provider] - Stand Alone Forms: Patient Portal/API/Survey
[2024-06-30] VITALS: BP 123/77; PULSE 58; RESP 16; O2SAT 98
--- NOTE | 2024-06-30 00:08 | DI.CT.S_ITS ---
PROCEDURE: CT ABDOMEN PELVIS W CON INDICATIONS: lower abd pain TECHNIQUE: After the administration of intravenous contrast, axial sections acquired from the lung bases to the pubic symphysis. Coronal and sagittal reformats were performed. For radiation dose reduction, the following was used: automated exposure control, adjustment of mA and/or kV according to patient size. COMPARISON: None. FINDINGS: Image quality: Diagnostic Lower chest: Lower lungs are unremarkable. Normal heart size. Liver: Unremarkable Gallbladder and biliary system: Unremarkable, nondilated Pancreas: No ductal dilation Spleen: Nonenlarged Adrenals: No discrete nodules Kidneys: No solid mass. No hydronephrosis. Vessels and lymph nodes: The main portal vein is patent. No abdominal aortic aneurysm. No pathologic lymph nodes identified by size criteria. Bowel and peritoneum: No small bowel obstruction. No drainable ascites. Increased fecal loading. Nondilated appendix. There are mildly distended loops of distal small bowel, including at the terminal ileum. Prominent fluid-filled loops of mid ileum also seen. Body wall: Unremarkable Pelvis: Bladder and reproductive organs are unremarkable on limited CT evaluation. Bones: No acute or suspicious osseous finding. IMPRESSION: Increased fecal loading. Nondilated appendix. No evidence of active colitis. Prominent fluid-filled loops of distal ileum and mid ileum, with more focal dilation at the terminal ileum. Findings favored represent enteritis and slow transit/ileus. A partial obstruction is considered less likely. Other findings above. Dictated by: Joni Villa M.D. on 06/30/2024 at 1:08 Approved by: Joni Villa M.D. on 06/30/2024 at 1:13
[2024-06-30] MEDS: SODIUM CHLORIDE 0.9% 1,000 ML 1000 ML IV (00:28)
[2024-06-30] MEDS: ONDANSETRON 4 MG/2 ML INJ IV (00:28)
[2024-06-30] MEDS: MORPHINE 4 MG/ML INJ IV (00:28)
[2024-06-30 00:30] VITALS: BP 119/77; PULSE 62; RESP 14; O2SAT 97
--- NOTE | 2024-06-30 00:49 | PC.NURSE ---
Pt to imaging via ED stretcher with astro technician
[2024-06-30 01:08] VITALS: O2SAT 100
[2024-06-30 01:09] VITALS: BP 125/84; PULSE 60; RESP 14; O2SAT 96
[2024-06-30 01:30] VITALS: BP 119/83; PULSE 59; RESP 14; O2SAT 96
== END 2024-06-30 02:02 | disposition home or self-care (01) ==
PROVIDERS: Emergency Provider Student in an Organized Health Care Education/Training Program
DX: R10.30 Lower abdominal pain, unspecified (principal); K59.00 Constipation, unspecified
CPT/HCPCS: 36415; 74177; 80053; 81003; 81025; 83690; 85025; 96361; 96374; 96375; 96376; 99284; J1885; J2270; J2405; Q9967

== ENCOUNTER 2024-07-10 01:24 | Emergency (ER) | payer OTHER, SELFPAY ==
[2024-07-10] VITALS (8 sets, daily range): BP systolic 119–144; BP diastolic 72–97; PULSE 55–75; RESP 17–26; TEMP 37; O2SAT 97–98; BMI 26.6
--- NOTE | 2024-07-10 01:57 | DI.RAD.S_ITS ---
PROCEDURE: XR CHEST 1V INDICATIONS: chest pain TECHNIQUE: One view of the chest was acquired. COMPARISON: None. FINDINGS: Surgical changes and devices: None. Lungs and pleura: Lungs are clear. No pleural effusions or pneumothorax. Mediastinum: Mediastinal contours appear normal. Heart size is normal. Bones and chest wall: No suspicious bony lesions. Overlying soft tissues appear unremarkable. IMPRESSION: No acute cardiopulmonary abnormality is seen. Agree with preliminary report. Dictated by: Damien Moss M.D. on 07/10/2024 at 8:16 Approved by: Damien Moss M.D. on 07/10/2024 at 8:16
--- NOTE | 2024-07-10 02:03 | EKG_ITS ---
[place] [address] [place] [id number] Test Date: 2024-07-10 Pat Name: Tabatha Dai Department: [facility] Room: Gender: Female Clinic Specialist: KAY : 2000 Requested By: Order Number: [id number] Reading MD: Shlomo Pineda MD Measurements Intervals [place] Rate: 66 P: 28 VA: 218 QRS: 64 QRSD: 88 T: 32 QT: 418 QTc: 438 Interpretive Statements Sinus rhythm with sinus arrhythmia with 1st degree AV block Electronically Signed On 07-10-2024 7:43:47 PDT by Shlomo Pineda MD
--- NOTE | 2024-07-10 02:11 | PC.NURSE ---
Pt had baby about 5 months ago.
[2024-07-10 02:13] LABS: Add Manual Diff / Slide Review NO; Basophils Absolute Auto 100 /uL (0-100); Basophils Percent Auto 1.1 % (0-2); Eosinophils Absolute Auto 100 /uL (0-450); Hematocrit 39.4 % (36-46); Hemoglobin 13.2 g/dL (12.0-16.0); Lymphocytes Absolute Auto 2900 /uL (1100-4500); Lymphocytes Percent Auto 37.7 % (25-40); Mean Corpuscular HGB Conc 33.6 % (30-36); Mean Corpuscular Volume 86.3 fL (80-100); Monocytes Absolute Auto 600 /uL (0-900); Monocytes Percent Auto 8.4 % (3-14); Neutrophils Absolute Auto 4000 /uL (1500-7000); Neutrophils Percent Auto 51.8 % (50-75); Platelet Count 255 X10^3/uL (150-400); Red Blood Cell Count 4.56 X10^6/uL (4.0-5.2); Red Cell Distribution Width 14.4 % (11.6-14.8); White Blood Cell Count 7.7 X10^3/uL (4.5-11.0)
[2024-07-10 02:26] LABS: Alanine Aminotransferase 36 IU/L (<35); Albumin 4.8 g/dL (3.5-5.0); Albumin Globulin Ratio 1.7 (1.0-2.8); Alkaline Phosphatase 95 U/L (38-126); Aspartate Aminotransferase 32 IU/L (14-36); BUN Creatinine Ratio 24.2 (6-22); Bilirubin Total 0.5 mg/dL (0.2-1.3); Blood Urea Nitrogen 15 mg/dL (7-17); Calcium 9.6 mg/dL (8.4-10.2); Carbon Dioxide 22 mmol/L (22-32); Chloride 105 mmol/L (98-107); Creatine Kinase 176 U/L (30-135); Estimated Glomerular Filt Rate > 60 mL/min (>60); Globulin 2.8 g/dL (1.7-4.1); Glucose 93 mg/dL (70-100); HEMOLYSIS < 15 (0-50); Lipase 81 U/L (23-300); Magnesium 1.5 mg/dL (1.6-2.3); Potassium 3.3 mmol/L (3.4-5.1); Sodium 138 mmol/L (137-145); Total Protein 7.6 g/dL (6.3-8.2)
[2024-07-10 02:37] LABS: NT-proBNP (BNP-Adult 18+) 30 pg/mL (<125); Troponin I < 0.012 ng/mL (0.01-0.034)
[2024-07-10 02:57] LABS: Prothrombin Time 11.4 SECONDS (9.4-12.5)
[2024-07-10 03:00] LABS: PTT Partial Thromboplastin Tim 36 SECONDS (25.1-36.5)
--- NOTE | 2024-07-10 03:52 | ED_ITS ---
HPI - Chest Pain General Chief Complaint: Chest Pain Stated Complaint: BP elevated 162/118, Chest Pain, nausea,Dizzy, MCCARTY Time Seen by Provider: 07/10/24 03:48 Source: patient, RN notes reviewed and old records reviewed Mode of arrival: Ambulatory Limitations: no limitations History of Present Illness HPI narrative: 24-year-old female who is 4 months presents with complaint of elevated blood pressure, chest pain, nausea. Was seen here on the 29 of June for abdominal pain. Patient states she started having symptoms this morning she describes it as little bit substernal little bit off to the left. States she was but does not feel like it is in the breast it feels deeper in her chest she was nontender over the nipple area has not noticed any skin changes. She states she does not feel short of breath. Chest pain got worse as the day went by. Has not changed location does not radiate. Patient states no fevers or chills. No abdominal back or flank pain. She states no vomiting but had some nausea earlier today she states that has not improved. She denies any diarrhea or constipation. No urinary symptoms. No swelling of her extremities. No syncope. She states no daily prescription medications, no prior surgeries. No known drug allergies. No tobacco, occasional alcohol, no recreational drugs. Patient denies any known cardiac, embolic or vascular history for family. She took some Tylenol at home earlier today had minimal improvement. Related Data Previous Rx's Medication Instructions Recorded 139-iron 33 mg-folic ac 1 pkg PO DAILY #60 ea 11/16/23 800 mcg tablet and dha 350 mg capsule (Brainstrong ) polyethylene glycol 3350 17 17 g PO DAILY 2 weeks #238 grams 06/30/24 gram/dose oral powder (Miralax) Allergies Allergy/AdvReac Type Severity Reaction Status Date / Time No Known Drug Allergies Allergy Verified 03/31/24 10:43 Review of Systems Review of Systems ROS Unobtainable: All systems reviewed & are unremarkable except as noted in HPI and below Patient History Medical History Healthy adult Surgical History [place] teeth extracted Social History marital status: unmarried,living together number of children: 0 household members: significant other lives independently: Yes caregiver/support person: No housing: [facility] ([facility]) education level: high school 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, 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 ) current occupational exposures/hazards: No special korey needs: No travel history: recent (domestic only) seatbelt use: always water heater temp set < 120 deg: Yes working smoke detector in home: Yes fire extinguisher in home: Yes carbon monox detector in home: Yes firearms in home: No do you feel safe at home: Yes Smoking Status: Former smoker Tobacco: How many years used: 2 second hand exposure: No alcohol intake: former (occasionally when not ) substance use type: does not use during the past year weight has: remained stable (prior ) well-balanced diet: about half the time daily servings fruits/ve-4 (~3 almost exclusively fruit) caffeine: Yes (stopped energy drinks with ) Type(s) of exercise: walking additional social history: Patient still legally to someone else but states that she has a protection order in place against him. Has already had HCPOA drawn up and names mother as her POA. Smoking Status: Former smoker Exam Narrative Exam Narrative: GENERAL: Alert and oriented x three, female in mild distress HEENT: Head normocephalic, atraumatic, EOMI, pupils reactive, face symmetric, moist mucous membranes NECK: Supple, full range of motion CARDIOVASCULAR: Regular rate and rhythm without murmurs, rubs or gallops. No JVD. Patient does have reproducible chest pain left sternal border. She does not have any tenderness over the breast itself. No rash, warmth or erythema appreciated. RESPIRATORY: Breath sounds equal bilaterally, no wheezes rales or rhonchi. No tachypnea or accessory muscle use. ABDOMEN: Soft, nontender. Normoactive bowel sounds all 4 quadrants. No guarding or rebound, rigidity, no mass : No CVA tenderness EXTREMITIES: Normal range of motion, no clubbing or edema. Neurovascularly intact NEUROLOGICAL: Cranial nerves II through XII grossly intact. Moving all extremities SKIN: Warm, dry, no petechiae, no rashes or lesions. Initial Vital Signs Initial Vital Signs: Vital Signs Temperature 98.6 F 03/24/25 01:46 Pulse Rate 75 07/10/24 01:46 Respiratory Rate 18 07/10/24 01:46 Blood Pressure 131/97 H 07/10/24 01:46 Pulse Oximetry 97 07/10/24 01:46 Oxygen Delivery Method Room Air 07/10/24 01:46 Scores HEART Score Heart Score history: Slightly Suspicious Heart Score EKG: Non-Specific repolarization disturbance Heart Score Age: < 45 years old Heart Score risk factors: No known risk factors Heart Score troponin: < or = to normal limit Heart Score Total: 1 PERC Score Age greater than or equal to 50 years: No Heart rate greater than or equal to 100 bpm: No Room Air O2 Sat less than 95%: No Unilateral leg swelling: No Recent trauma or surgery: No Hemoptysis: No Prior PE or DVT: No Hormone Use: No Total PERC Score: 0 Course Orders Ordered: ED Orders 07/10/24 01:57 XR chest 1V Stat EKG-12 Lead Stat 07/10/24 02:05 Complete Blood Count AUTO DIFF Stat Comprehensive Metabolic Panel Stat D Dimer Stat Lipase Stat Magnesium Stat NT-proBNP (BNP-Adult 18+) Stat PTT Partial Thromboplastin Javi Stat Prothrombin Time INR Stat Troponin & CK Cardiac Panel Stat 07/10/24 04:14 EKG-12 Lead Stat 07/10/24 05:07 Trop I [Troponin I] Stat Discontinued Medications Aspirin (Aspirin 81 Mg Chew Tab) 324 mg PO NOW ONE Stop: 07/10/24 01:58 Last Admin: 07/10/24 04:59 Dose: 324 mg Documented By: SAIDA Ketorolac Tromethamine (Ketorolac 30 Mg/Ml Vial) 15 mg IV NOW ONE Stop: 07/10/24 04:15 Last Admin: 07/10/24 04:59 Dose: 15 mg Documented By: SAIDA Potassium Chloride (Potassium Chloride 20 Meq Tab) 40 meq PO NOW ONE Stop: 07/10/24 04:15 Last Admin: 07/10/24 04:59 Dose: 40 meq Documented By: SAIDA Vital Signs Vital signs: Vital Signs - 8 hr 07/10/24 01:46 07/10/24 02:22 07/10/24 02:22 Temperature 98.6 F Pulse Rate 75 67 Respiratory Rate 18 26 H Blood Pressure 131/97 H 131/83 Pulse Oximetry 97 97 Oxygen Delivery Method Room Air 07/10/24 02:30 07/10/24 02:30 07/10/24 03:00 Temperature Pulse Rate 68 Respiratory Rate Blood Pressure 133/94 H 119/74 Pulse Oximetry 97 Oxygen Delivery Method 07/10/24 03:00 07/10/24 03:30 07/10/24 03:30 Temperature Pulse Rate 69 68 Respiratory Rate 25 H 26 H Blood Pressure 124/86 Pulse Oximetry 98 97 Oxygen Delivery Method 07/10/24 04:00 07/10/24 04:00 07/10/24 04:30 Temperature Pulse Rate 55 L 65 Respiratory Rate 24 20 Blood Pressure 144/86 H Pulse Oximetry 98 98 Oxygen Delivery Method 07/10/24 04:30 07/10/24 05:00 07/10/24 05:00 Temperature Pulse Rate 58 L Respiratory Rate 17 Blood Pressure 125/72 122/80 Pulse Oximetry 97 Oxygen Delivery Method MDM - Chest Pain Lab Data 07/10/24 02:05 07/10/24 02:05 Labs: Lab Results 07/10/24 07/10/24 Range/Units 02:05 05:07 WBC 7.7 (4.5-11.0) X10^3/uL RBC 4.56 (4.0-5.2) X10^6/uL Hgb 13.2 (12.0-16.0) g/dL Hct 39.4 (36-46) % MCV 86.3 (80-100) fL MCH 29.0 (26-34) PG MCHC 33.6 (30-36) % RDW 14.4 (11.6-14.8) % Plt Count 255 (150-400) X10^3/uL Neut % (Auto) 51.8 (50-75) % Lymph % (Auto) 37.7 (25-40) % [place] % (Auto) 8.4 (3-14) % Eos % (Auto) 1.0 L (2-4) % Baso % (Auto) 1.1 (0-2) % Neut # (Auto) 4000 (5809-1934) /uL Lymph # (Auto) 2900 (7557-1658) /uL [place] # (Auto) 600 (0-900) /uL Eos # (Auto) 100 (0-450) /uL Baso # (Auto) 100 (0-100) /uL PT 11.4 (9.4-12.5) SECONDS INR 1.0 (0.9-1.3) APTT 36 (25.1-36.5) SECONDS D-Dimer < 215 (<500) ng/ml Sodium 138 (137-145) mmol/L Potassium 3.3 L (3.4-5.1) mmol/L Chloride 105 (98-107) mmol/L Carbon Dioxide 22 (22-32) mmol/L BUN 15 (7-17) mg/dL Creatinine 0.62 (0.52-1.04) mg/dL Estimated GFR > 60 (>60) mL/min BUN/Creatinine Ratio 24.2 H (6-22) Glucose 93 (70-100) mg/dL Calcium 9.6 (8.4-10.2) mg/dL Magnesium 1.5 L (1.6-2.3) mg/dL Total Bilirubin 0.5 (0.2-1.3) mg/dL AST 32 (14-36) IU/L ALT 36 H (<35) IU/L Alkaline Phosphatase 95 (38-126) U/L Total Creatine Kinase 176 H (30-135) U/L Troponin I < 0.012 < 0.012 (0.01-0.034) ng/mL NT-Pro-B Natriuret Pep 30 (<125) pg/mL Total Protein 7.6 (6.3-8.2) g/dL Albumin 4.8 (3.5-5.0) g/dL Globulin 2.8 (1.7-4.1) g/dL Albumin/Globulin Ratio 1.7 (1.0-2.8) Lipase 81 (23-300) U/L ECG Data Attestation: I personally reviewed and interpreted this ECG as follows: Prior ECG tracings: not available for review Interpretation: Sinus rhythm with sinus arrhythmia rate of 66 MO 218 QRS 88 QTC of 438 first- degree AV block. No priors for comparison. Repeat EKG shows sinus bradycardia with first-degree AV block nonspecific change to his down in V2 was upright prior no other ST changes appreciated. MDM Narrative Medical decision making narrative: Labs show normal white count hemoglobin and platelets. INR is 1. Potassium 3.3 and magnesium is 1.5, sodium and chloride are appropriate CO2 is 22 with a BUN 15 creatinine 0.62 glucose is 93. Total CK is 176 troponins less than 0.012 with a BNP of 30. Lipase of 81. Repeat troponin is less than 0.012. Dimer is negative at less than 215. EKG sinus rhythm with sinus arrhythmia. Chest x-ray shows no acute change. Patient does have some reproducible chest pain no obvious signs of mastitis she was not having chills or infectious symptoms. Patient has some nonspecific change on EKG but otherwise reassuring workup dimer is negative, heart score is 1 with a PERC of 0. Patient is felt appropriate for discharge home with follow up with primary care. She notes some concern about elevated blood pressures but they have been 140s to 120s here in the department. Did discuss differential including mastitis but does not have any infectious changes on exam. Discharge Plan Departure Patient Disposition: Home Clinical Impression: Atypical chest pain Instructions: DI for Atypical Chest Pain Activity Restrictions/Additional Instructions: Follow up for recheck if your symptoms are persisting. You can take acetaminophen up to a 1000 mg and/or ibuprofen up to 600 mg every 6 hours as needed for pain. Both of these are safe while . If you develop fevers, new or worsening chest pain or shortness of breath, persistent vomiting, any new redness or swelling of the breast hardness or lumps, lightheadedness or passing out or other new or concerning changes. Prescriptions: No Action Brainstrong 33 mg iron- 800 mcg-350 mg combo pack 1 pkg PO DAILY Qty: 60 6RF polyethylene glycol 3350 [Miralax] 17 gram/dose powder 17 g PO DAILY 14 Days Qty: 238 0RF Referrals: ProviderIrlanda [Primary Care Provider] - Stand Alone Forms: Patient Portal/API/Survey, Work Release Note
[2024-07-10 04:41] LABS: D Dimer < 215 ng/ml (<500)
--- NOTE | 2024-07-10 04:44 | EKG_ITS ---
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
[2024-07-10] MEDS: POTASSIUM CHLORIDE 20 MEQ TAB 40 MEQ PO (04:59)
[2024-07-10] MEDS: KETOROLAC 30 MG/ML VIAL 15 MG IV (04:59)
[2024-07-10] MEDS: ASPIRIN 81 MG CHEW TAB 324 MG PO (04:59)
[2024-07-10 05:39] LABS: Troponin I < 0.012 ng/mL (0.01-0.034)
== END 2024-07-10 06:18 | disposition home or self-care (01) ==
PROVIDERS: Emergency Provider Emergency Medicine
DX: R07.89 Other chest pain (principal); I49.8 Other specified cardiac arrhythmias; R03.0 Elevated blood-pressure reading, without diagnosis of hypertension; R11.0 Nausea
CPT/HCPCS: 36415; 71045; 80053; 82550; 83690; 83735; 83880; 84484; 85025; 85379; 85610; 85730; 93005; 96374; 99284; J1885

== ENCOUNTER 2024-10-10 07:42 | Emergency (ER) | payer OTHER, SELFPAY ==
[2024-10-10 07:53] VITALS: BP 132/89; PULSE 83; RESP 16; TEMP 36.8; O2SAT 98; BMI 23.5
--- NOTE | 2024-10-10 08:00 | ED_ITS ---
HPI - Headache General Chief Complaint: Headache Stated Complaint: headache for 2 days Time Seen by Provider: 10/10/24 07:50 Mode of arrival: Ambulatory History of Present Illness HPI Narrative: 24-year-old woman with a history of increasing headaches [place]. Recently given sumatriptan it was not effective. She comes in today with 48 hours of what is turning into her regular presenting migraine type symptoms. Tends to start in the right eye, is associated with an aura and then progresses to include the right forehead. Associated nausea, vomiting, photophobia, phonophobia and continued headache. No other neurologic complaints. She has not tried any medications for daily prophylaxis and it sounds like she is having headaches at least more than 15/30 days a month. Related Data Previous Rx's ?Medication ?Instructions ?Recorded 139-iron 33 mg-folic ac 1 pkg PO DAILY #60 ea 11/16/23 800 mcg tablet and dha 350 mg capsule (Brainstron ) amitriptyline 25 mg tablet 25 mg PO BEDTIME #30 tabs 0 10/10/24 Allergies Allergy/AdvReac Type Severity Reaction Status Date / Time No Known Drug Allergies Allergy Verified 10/10/24 07:54 Review of Systems Review of Systems Narrative: Pertinent positive and negative findings as per HPI Patient History Medical History (Updated 10/10/24 @ 10:11 by Hailey Grullon MD) Chronic migraine Healthy adult Surgical History [place] teeth extracted Social History marital status: unmarried,living together number of children: 0 household members: significant other lives independently: Yes caregiver/support person: No housing: [facility] ([facility]) education level: high school 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, 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 ) current occupational exposures/hazards: No special korey needs: No travel history: recent (domestic only) seatbelt use: always water heater temp set < 120 deg: Yes working smoke detector in home: Yes fire extinguisher in home: Yes carbon monox detector in home: Yes firearms in home: No do you feel safe at home: Yes Tobacco: How many years used: 2 second hand exposure: No alcohol intake: former (occasionally when not ) substance use type: does not use during the past year weight has: remained stable (prior ) well-balanced diet: about half the time daily servings fruits/ve-4 (~3 almost exclusively fruit) caffeine: Yes (stopped energy drinks with ) Type(s) of exercise: walking additional social history: Patient still legally to someone else but states that she has a protection order in place against him. Has already had HCPOA drawn up and names mother as her POA. Exam Initial Vital Signs Initial Vital Signs: Vital Signs Temperature 98.3 F 10/10/24 07:53 Pulse Rate 83 10/10/24 07:53 Respiratory Rate 16 10/10/24 07:53 Blood Pressure 132/89 10/10/24 07:53 Pulse Oximetry 98 10/10/24 07:53 Oxygen Delivery Method Room Air 10/10/24 07:53 General: Alert appropriate in no acute distress HEENT: Pupils are equal and reactive, she is sensitive to light. No obvious cranial nerve abnormalities Respiratory: Able to speak in full sentences, no obvious respiratory distress Skin: No obvious rashes, warm and dry Neurologic: Grossly intact no obvious asymmetries or abnormalities Psych: appropriate insight and affect, cooperative Course Orders Ordered: Discontinued Medications Dexamethasone (Dexamethasone 10 Mg/Ml Vial) 10 mg IV NOW ONE Stop: 10/10/24 08:06 Last Admin: 10/10/24 08:51 Dose: 10 mg Documented By: ES Diphenhydramine HCl (Diphenhydramine 50 Mg/Ml Vial) 25 mg IV NOW ONE Stop: 10/10/24 08:06 Last Admin: 10/10/24 08:57 Dose: Not Given Documented By: ES Droperidol (Droperidol 2.5 Mg/Ml Vial) 0.625 mg IV NOW ONE Stop: 10/10/24 08:06 Last Admin: 10/10/24 08:58 Dose: Not Given Documented By: ES Sodium Chloride (Normal Saline 0.9%) 1,000 mls @ 1,000 mls/hr IV BOLUS ONE Stop: 10/10/24 09:04 Last Infusion: 10/10/24 09:35 Dose: Infused Documented By: Admin: 10/10/24 08:50 Dose: 1,000 mls/hr Documented By: AMADEO Ketorolac Tromethamine (Ketorolac 30 Mg/Ml Vial) 30 mg IV NOW ONE Stop: 10/10/24 08:06 Last Admin: 10/10/24 08:50 Dose: 30 mg Documented By: AMADEO Vital Signs Vital signs: Vital Signs - 8 hr 10/10/24 07:53 10/10/24 09:28 10/10/24 09:29 Temperature 98.3 F Pulse Rate 83 78 Respiratory Rate 16 Blood Pressure 132/89 142/90 H Pulse Oximetry 98 100 Oxygen Delivery Method Room Air MDM - Headache MDM Narrative Medical decision making narrative: 24-year-old woman with progressive migraines, sumatriptan has not been effective. Has not tried daily prophylactic medications. Comes in for headache lasting for 48 hours. It responded nicely to usual migraine cocktail of fluids, an absent, Benadryl, Toradol and dexamethasone given the length of the headache. We did discuss paying attention to triggers such as dehydration, sugar, other foods. We also discussed possible prophylactic medication. We reviewed using low-dose amitriptyline, alternatives benefits risks and side effects of amitriptyline discussed code prescriptions given we will ask her to follow up with her primary care physician within 2 weeks. Also suggested use of Excedrin migraine. At most she will use for pills in a day and is not using it daily. There was no indication for further workup or hospitalization and she is safe for discharge Discharge Plan Departure Patient Disposition: Home Clinical Impression: Migraine Qualifiers: Migraine type: chronic migraine (15 or more days per month) with aura Instructions: DI for Migraine Activity Restrictions/Additional Instructions: Thank you for coming in today For your migraine we used a combination of fluids, Toradol, and Inapsine, Benadryl and a steroid so hopefully this 1 will go away and stay away I would encourage you to do a bit of research on migraines and common triggers. Making sure that you are well hydrated, avoiding sugar, caffeine and making sure that you are getting regular asleep all help significantly and diminishing frequency of migraine Given you a prescription for amitriptyline. This is a medication that at low doses can help with chronic pain type issues, similar to chronic migraine. I would recommend taking it about 2 hours before you go to bed, it does make you fairly sleepy and if you take it right at bedtime you tend to be groggy in the morning. You may feel dizzy if you wake up in the middle of the night for the 1st couple of days. It does take a couple of days to get use to this medication. Please begin keeping a headache diary. Note days that you have headaches when you do not have headaches and things around the days when you do have headaches so you may be able to figure out what is triggering yours. You do need to follow up with your primary care physician. Need to make sure the amitriptyline is working and decide if you want to continue this. There are other headaches specific medications beyond sumatriptan if that has not worked. I would recommend continue the occasional Excedrin migraine when the pain is severe. If you find that you are getting worse or develop any new symptoms, please feel free to return to the emergency department for further evaluation. Prescriptions: New amitriptyline 25 mg tablet 25 mg PO BEDTIME Qty: 30 1RF No Action Brainstrong 33 mg iron- 800 mcg-350 mg combo pack 1 pkg PO DAILY Qty: 60 6RF Referrals: ProviderIrlanda [Primary Care Provider, Family Practice] Stand Alone Forms: Patient Portal/API
[2024-10-10] MEDS: KETOROLAC 30 MG/ML VIAL IV (08:50)
[2024-10-10] MEDS: SODIUM CHLORIDE 0.9% 1,000 ML 1000 ML IV (08:50)
[2024-10-10] MEDS: DEXAMETHASONE 10 MG/ML VIAL IV (08:51)
[2024-10-10 09:28] VITALS: PULSE 78; O2SAT 100
[2024-10-10 09:29] VITALS: BP 142/90
== END 2024-10-10 10:28 | disposition home or self-care (01) ==
PROVIDERS: Emergency Provider Emergency Medicine
DX: G43.E09 Chronic migraine with aura, not intractable, without status migrainosus (principal)
CPT/HCPCS: 96361; 96374; 96375; 99283; 99284; J1100; J1885